=== PATIENT | female | born 1990 | race African-American/Black ===

== ENCOUNTER 2023-02-02 09:54 | Emergency (ER) | payer MEDICAID, SELFPAY ==
[2023-02-02 10:26] VITALS: BP 107/71; PULSE 78; RESP 18; TEMP 36.4; O2SAT 99; BMI 28.4
[2023-02-02 10:49] LABS: IDNOW Serial# 08D9AD1C; Strep A Nucleic Acid Negative (Negative)
--- NOTE | 2023-02-02 11:41 | ED_ITS ---
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 She reports history of the same in the past and states that she is usually treated with antibiotics which improved her symptoms. States she has not required antibiotics in several years, most recently in [place]. She denies any fevers, chills, sweats. Denies dental pain. Reports difficulty eating due to pain. Denies any difficulty swallowing. MD complaint: right jaw pain Onset (ago): hour(s) Location: mouth Radiation: other (right ear) Severity: severe Quality: aching Pain Consistency: constant Relieving factors: none Exacerbating factors: eating Associated symptoms: other (purulent drainage from SMG) Treatments prior to arrival: none Related Data Previous Rx's Medication Instructions Recorded amoxicillin 875 mg-potassium 1 tab PO BID 14 days #28 tabs 02/02/23 clavulanate 125 mg tablet Allergies Allergy/AdvReac Type Severity Reaction Status Date / Time No Known Allergies Allergy Verified 02/02/23 12:27 Review of Systems Review of Systems: As per HPI. Yes all other systems are reviewed and are negative Constitutional: Constitutional: Reports as per HPI [facility] Social History Social History Advance Directives: No Physical Exam ED Vital Signs: Vital Signs - 24 hr 02/02/23 10:26 Temperature 97.5 F Pulse Rate 78 Respiratory Rate 18 Blood Pressure 107/71 Pulse Oximetry 99 Oxygen Delivery Method Room Air BMI result Body Mass Index 28.4 Vital signs have been reviewed and appear to be correct. Blood pressure normal. Heart rate normal. Respiratory rate normal. Temperature normal. Oxygen saturation normal. Const General: cooperative, healthy appearing and no acute distress Orientation/consciousness: oriented to person, oriented to place, oriented to time and patient oriented x3 Limitations: no limitations HENMT Head: Yes normocephalic and Yes atraumatic Ears: external ears normal, TM's normal bilaterally, EAC's normal and no periauricular adenopathy General nose exam: Normal external nose present Face and sinus: Yes face symmetric Mouth: abnormal salivary ducts (swelling to and purulent drainage from right submandibular gland), oropharynx normal and moist mucous membranes Teeth and gingiva: dentition normal and gingiva normal Throat: Yes posterior oropharynx normal, Yes uvula midline and No uvular edema Eyes Pupils: Equal, round and reactive pupils present Neck Neck: Yes normal visual inspection and Yes supple Lymphatic: lymphadenopathy right submandibular single, soft and tender; not warm Resp Effort & Inspection: normal respiratory effort and able to speak in complete sentences Auscultation: clear to auscultation bilaterally Cardio Rate: regular rate Rhythm: regular rhythm Heart sounds: S1 normal heart sound present and S2 normal heart sound present GI Palpation (GI): Soft to palpation and nontender Auscultation: normoactive bowel sounds General: Yes no CVA tenderness Back/Spine/Pelvis Back: no CVA tenderness Skin General skin exam: elasticity normal and turgor normal Neuro General: oriented to person, oriented to place, oriented to time, patient oriented x3, moves all extremities, no focal motor deficits and CN's II-XI intact bilaterally Cranial nerves: Yes Equal, round and reactive pupils present Cognition (Neuro): normal cognition Extrem General: Yes full ROM, Yes no pedal edema and Yes no calf tenderness Psych Mental Status: mental status grossly normal Affect: normal affect Thought process: Normal thought process present Medical Decision Making Medical Decision Making MDM Narrative: Patient is a 32-year-old [place] Creole speaking female presenting to the emergency department with complaint of right submandibular pain, swelling and purulent drainage since last night. On exam patient is awake, A+Ox3, VS WNL, afebrile, nontoxic appearing, normal neurological exam without focal deficits, physical exam findings as above. Given reported symptoms and physical exam findings, initial differential includes acute bacterial sialadenitis, s ialolithiasis, sialoadenitis. Do not suspect Fareed's angina or suppurative parotitis. Case discussed with Dr. Aburto who agrees that as patient is afebrile and nontoxic appearing, imaging is not indicated at this time. Will treat patient with course of Augmentin. Advised patient to gargle with warm salt water several times daily and discussed gentle salivary gland massages, sialogogues. Strict return precautions discussed at bedside. She does not currently have a primary care provider, patient provided with phone number for [facility] to attempt to establish care. Patient verbalized understanding of and agreement with plan of care. Differential Diagnosis Differential Diagnoses: The differential diagnosis associated with the presentation includes As per [facility]. Lab Data [facility] Lab Attestation statement: I reviewed the patient's lab results. As per MDM. Labs: Lab Results 02/02/23 Range/Units 10:34 S. pyogenes GrpA CELIA Negative (Negative) External Record Review External record reviewed: Inpatient record, Office record and Outpatient record Prescription Management I considered prescription management with: Antibiotic Discharge Plan Discharge Clinical Impression: Acute bacterial sialadenitis Patient Disposition: Home, Self-Care Instructions: Sialoadenitis (ED) Additional Instructions: Ou te dyagnostike nan depatman ijans merissa a ak yon enfeksyon nan glann saliv. Yo preskri w yon benson nan antibyotik jovan trete sa a. Li enp?jasmine jovan ou fini benson konpl? antibyotik kyle yo preskri. Ou kapab regis f? masaj toni nan glann saliv ou kyle yo demontre nan depatman ijans la. Ou ka itilize sir?t tounen tankou gout sitwon jovan ankouraje salivasyon. Ou ta dwe retounen nan depatman ijans la imedyatman si w devlope doul? oswa anfle ki trish pi grav, lafy?v 100.4 F, difikilte jovan michael oswa respire, oswa nenp?t l?t sent?m kons?nan. Tanpri swiv ak founis? swen prensipal ou a. Si ou mitali ricardopri rele nimewo yo bay la jovan etabli radha ochoa pi vit posib. Prescriptions: New amoxicillin-pot clavulanate 875-125 mg tablet 1 tab PO BID 14 Days Qty: 28 0RF
== END 2023-02-02 12:42 | disposition home or self-care (01) ==
PROVIDERS: Emergency Provider Emergency Medicine Emergency Medical Services
DX: K11.21 Acute sialoadenitis (principal); J02.9 Acute pharyngitis, unspecified
CPT/HCPCS: 87651; 99283; 99284

== ENCOUNTER 2023-05-11 10:50 | Outpatient (REF) | payer MEDICAID, SELFPAY ==
--- NOTE | ~2023-05-11 | XR_ITS ---
EXAMINATION: XR RIBS, RIGHT CLINICAL INFORMATION: Anterior right rib pain COMPARISON: None available. TECHNIQUE: 3 views of the right ribs were obtained. FINDINGS: PA chest x-ray, frontal and oblique x-rays of Right ribs show normal cardiac size and pulmonary vascularity. Lungs are clear. No pneumothorax is seen. The visualized Right ribs are intact without focal lesion. XR/XR ribs RT 2V IMPRESSION: 1. Normal chest x-ray. No pneumothorax is found. 2. No evidence of Right ribs fracture.
[2023-05-11 11:35] LABS: MANUAL DIFF FLAG NO
[2023-05-11 11:38] LABS: Basophils Percent Auto 0.6 % (0-2); Eosinophils Absolute Auto 0.1 X10*3/uL (0.0-0.4); Eosinophils Percent Auto 1.4 % (0-4); Hematocrit 41.6 % (37.0-47.0); Hemoglobin 13.4 g/dl (12.0-16.0); Imm Gran Abs Auto 0.01 X10*3/uL (0.00-0.03); Imm Gran Pct Auto 0.2 % (0.0-0.4); Lymphocytes Absolute Auto 2.1 X10*3/uL (1.2-4.9); Lymphocytes Percent Auto 42.7 % (20-40); Mean Corpuscular HGB Conc 32.2 g/dl (31.0-35.0); Mean Corpuscular Hemoglobin 26.8 pg (27.0-33.0); Mean Corpuscular Volume 83.2 fL (80.0-98.0); Mean Platelet Volume 9.3 fL (9.4-12.3); Monocytes Absolute Auto 0.4 X10*3/uL (0.1-1.2); Monocytes Percent Auto 8.3 % (2-11); Neutrophils Absolute Auto 2.3 x10*3/uL (2.0-8.3); Neutrophils Percent Auto 46.8 % (45-73); Platelet Count 296 X10*3/uL (160-400); Red Cell Distribution Width 12.5 % (11.0-16.0); White Blood Count 4.9 X10*3/uL (4.8-10.8)
[2023-05-11 11:55] LABS: Alanine Aminotransferase 134 U/L (0-31); Albumin Level 4.3 g/dL (3.5-5.0); Alkaline Phosphatase 101 U/L (39-117); Anion Gap 10 (12-20); Aspartate Amino Transferase 50 U/L (5-31); Bilirubin Total 0.5 mg/dL (0.0-1.0); Blood Urea Nitrogen 9 mg/dL (9-16); Calcium 9.6 mg/dL (8.4-10.2); Carbon Dioxide 26 mmol/L (22-29); Chloride 106 mmol/L (96-108); Estimated Glomerular Filt Rate > 60; Glucose Random 95 mg/dL (60-115); Potassium 4.2 mmol/L (3.3-5.1); Sodium 138 mmol/L (135-145); Total Protein 7.3 g/dL (6.5-8.0)
[2023-05-11 12:26] LABS: HBS Num1 0.55 mIU/mL (0-7.99); HBc Num1 0.19 S/CO (0.00-0.79); HBsAGNum1 0.32 S/CO (0.00-0.99); HIV AB/AG Nonreactive (Nonreactive); HIV Num 1 0.05 S/CO (0.00-0.99); Hepatitis B Core Antibody Nonreactive (Nonreactive); Hepatitis B Surface Antigen Negative (Negative); ~HepC Num1 0.07 S/CO (0.00-0.79); ~Hepatitis B Surface Antibody NONREACTIVE (Nonreactive); ~Hepatitis C Antibody Nonreactive (Nonreactive)
[2023-05-11 12:27] LABS: Hepatitis A Antibody IgG REACTIVE (Nonreactive); ~Hepatitis A Antibody IgG 11.26 S/CO (0.00-0.99)
[2023-05-11 12:52] LABS: Syphilis Screen Nonreactive (Nonreactive)
== END 2023-05-11 10:51 | disposition home or self-care (01) ==
LOC: HO.HHCL 10:50
PROVIDERS: Visit Provider Family Medicine
DX: R07.81 Pleurodynia (principal); K11.20 Sialoadenitis, unspecified; Z11.3 Encounter for screening for infections with a predominantly sexual mode of transmission
CPT/HCPCS: 36415; 71100; 80053; 85025; 86704; 86706; 86708; 86780; 86803; 87340; 87389

== ENCOUNTER 2023-05-22 08:20 | Outpatient (REF) | payer MEDICAID, SELFPAY ==
--- NOTE | ~2023-05-22 | US_ITS ---
EXAMINATION: US ABDOMEN COMPLETE CLINICAL INFORMATION: Transabdominal disc, right upper quadrant pain. COMPARISON: None available. TECHNIQUE: Real-time imaging of the abdominal viscera. [facility] desulphuring operator services utilized to ensure patient understanding. FINDINGS: PANCREAS: Normal. ABDOMINAL AORTA: The proximal, mid, and distal segments are normal in caliber. INFERIOR VENA CAVA: Visualized portions are normal. LIVER: Normal. The liver is normal in size. The liver contour is normal. Parenchymal echogenicity is normal. No focal hepatic lesion. There is no intrahepatic biliary duct dilatation seen. GALLBLADDER: Normal. The gallbladder is physiologically distended without evidence of stones, sludge, polyps, wall thickening or pericholecystic fluid. COMMON BILE DUCT: Normal in caliber measuring 0.4 cm in diameter. RIGHT KIDNEY: Normal. No hydronephrosis. No renal calculi or focal parenchymal lesions. The kidney measures 10.5 cm in maximum dimension. LEFT KIDNEY: Normal. No hydronephrosis. No renal calculi or focal parenchymal lesions. The kidney measures 10.1 cm in maximum dimension. SPLEEN: Multiple punctate echogenic foci may represent calcified granulomas indicative of old granulomatous disease. The spleen measures 9.6 cm in maximum dimension. FREE FLUID: None. US/US abdomen complete IMPRESSION: 1. Multiple punctate echogenic foci within the spleen may represent calcified granulomas indicative of old granulomatous disease. 2. No other significant finding.
== END 2023-05-22 08:21 | disposition home or self-care (01) ==
LOC: HO.HMGCX 08:20
PROVIDERS: Visit Provider Family Medicine
DX: R74.01 Elevation of levels of liver transaminase levels (principal)
CPT/HCPCS: 76700

== ENCOUNTER 2023-05-26 14:00 | Outpatient (REF) | payer MEDICAID, SELFPAY ==
[2023-05-26 16:31] LABS: Alanine Aminotransferase 35 U/L (0-31); Albumin Level 4.2 g/dL (3.5-5.0); Alkaline Phosphatase 92 U/L (39-117); Anion Gap 11 (12-20); Aspartate Amino Transferase 18 U/L (5-31); Bilirubin Total 0.4 mg/dL (0.0-1.0); Blood Urea Nitrogen 8 mg/dL (9-16); Calcium 9.1 mg/dL (8.4-10.2); Carbon Dioxide 26 mmol/L (22-29); Chloride 106 mmol/L (96-108); Estimated Glomerular Filt Rate > 60; Gamma Glutamyl Transpeptidase 50 U/L (7-33); Glucose Random 90 mg/dL (60-115); Lipase 16 U/L (8-78); Sodium 139 mmol/L (135-145); Total Protein 7.2 g/dL (6.5-8.0)
[2023-05-29 16:48] LABS: Immunoglobulin A 78 mg/dL (47-310); Transglutaminase IgA <1.0 U/mL
== END 2023-05-26 14:01 | disposition home or self-care (01) ==
LOC: HO.HHCL 14:00
PROVIDERS: Visit Provider Family Medicine
DX: R10.11 Right upper quadrant pain (principal); R74.01 Elevation of levels of liver transaminase levels
CPT/HCPCS: 36415; 80053; 82784; 82977; 83690; 86364